=== PATIENT | female | born 1950 | race Caucasian/White ===

== ENCOUNTER 2018-05-21 05:37 | Day surgery (SDC) | payer OTHER ==
[2018-05-21 06:48] LABS: ADD MAN DIFF? NO
[2018-05-21 06:55] LABS: BASOPHILS % 0.6 % (0.0-2.0); EOSINOPHILS # 0.2 10^3/ul (0.0-0.5); EOSINOPHILS % 2.2 % (0.0-7.0); HEMATOCRIT 42.8 % (37.0-47.0); HEMOGLOBIN 13.4 g/dl (12.0-16.0); LYMPHOCYTES # 2.8 10^3/ul (0.8-2.9); LYMPHOCYTES % 40.7 % (15.0-51.0); MEAN CORPUSCULAR HGB CONC 31.3 g/dl (32.0-37.0); MEAN CORPUSCULAR VOLUME 89.5 fl (82.0-101.0); MEAN PLATELET VOLUME 11.5 fl (7.4-10.4); MONOCYTE # 0.5 10^3/ul (0.3-0.9); NEUTROPHIL # 3.3 10^3/ul (1.6-7.5); NEUTROPHILS % 48.1 % (39.0-77.0); PLATELET COUNT 185 10^3/UL (140-415); RED BLOOD COUNT 4.78 10^6/ul (4.20-5.40); RED CELL DISTRIBUTION WIDTH 14.8 % (11.5-14.5)
[2018-05-21 06:55] LABS: WHITE BLOOD COUNT 6.8 10^3/ul (4.8-10.8)
[2018-05-21 07:11] LABS: ALANINE AMINOTRANSFERASE 16 IU/L (13-69); ALBUMIN 3.7 g/dl (3.3-4.9); ALBUMIN/GLOBULIN RATIO 1.08; ALKALINE PHOSPHATASE 104 IU/L (42-121); ANION GAP 4 (5-13); ASPARTATE AMINO TRANSFERASE 26 IU/L (15-46); BLOOD UREA NITROGEN 22 mg/dl (7-20); CALCIUM 9.6 mg/dl (8.4-10.2); CARBON DIOXIDE 32 mmol/L (21-31); CHLORIDE 105 mmol/L (97-110); CREATININE 0.92 mg/dl (0.44-1.00); Estimated GFR > 60 mL/min (>60); GLUCOSE 95 mg/dl (70-220); POTASSIUM 4.6 mmol/L (3.5-5.1); SODIUM 141 mmol/L (135-144); TOTAL PROTEIN 7.1 g/dl (6.1-8.1)
[2018-05-21 07:12] LABS: INR 1.49; PROTIME 18.1 Sec (11.9-14.9); PT RATIO 1.4
[2018-05-21] MEDS ORDERED: FENTAnyl 50 MCG/ML VIAL IV (07:30)
[2018-05-21] MEDS ORDERED: LABETALOL HCL 20MG INJ IV (07:30)
[2018-05-21] MEDS ORDERED: ONDANSETRON 4 MG INJ IV (07:30)
[2018-05-21] MEDS ORDERED: morphine (1 MG/ML) 10ML SYRINGE IV (07:30)
[2018-05-21] MEDS ORDERED: hydrALAzine 20 MG INJ IV (07:30)
[2018-05-21] MEDS ORDERED: METOCLOPRAMIDE 10 MG INJ IV (07:30)
[2018-05-21] MEDS ORDERED: HYDROmorphONE 1 MG/5 ML IV SYRINGE IV (07:30)
[2018-05-21 07:42] LABS: PARTIAL THROMBOPLASTIN TIME 42.3 Sec (23.0-35.0)
[2018-05-21] MEDS ORDERED: PROPOFOL 40 ML (08:03)
== END 2018-05-21 08:50 | disposition home or self-care (01) ==
LOC: SDS 05:37
DX: I45.2 Bifascicular block (principal); I48.91 Unspecified atrial fibrillation; I10 Essential (primary) hypertension; E66.9 Obesity, unspecified
CPT/HCPCS: 80053; 85025; 85610; 85730; 92960; 93005; 93312; 93320; 93325

== ENCOUNTER 2018-05-28 16:29 | Observation (INO) | payer OTHER ==
[2018-05-28 19:10] LABS: ADD MAN DIFF? NO
[2018-05-28] MEDS: NITROGLYCERIN 2% 1 GM OINT PKT TD (19:10)
[2018-05-28] MEDS: LORAZEPAM 2 MG INJ IV (19:10)
[2018-05-28] MEDS: ASPIRIN 325 MG TAB PO (19:10)
[2018-05-28 19:11] LABS: WHITE BLOOD COUNT 7.7 10^3/ul (4.8-10.8)
[2018-05-28 19:11] LABS: BASOPHILS % 0.4 % (0.0-2.0); EOSINOPHILS # 0.1 10^3/ul (0.0-0.5); EOSINOPHILS % 1.3 % (0.0-7.0); HEMATOCRIT 41.4 % (37.0-47.0); HEMOGLOBIN 12.9 g/dl (12.0-16.0); LYMPHOCYTES # 2.7 10^3/ul (0.8-2.9); LYMPHOCYTES % 35.4 % (15.0-51.0); MEAN CORPUSCULAR HEMOGLOBIN 27.7 pg (29.0-33.0); MEAN CORPUSCULAR HGB CONC 31.2 g/dl (32.0-37.0); MEAN CORPUSCULAR VOLUME 88.8 fl (82.0-101.0); MEAN PLATELET VOLUME 10.3 fl (7.4-10.4); MONOCYTE # 0.7 10^3/ul (0.3-0.9); MONOCYTES % 8.4 % (0.0-11.0); NEUTROPHIL # 4.2 10^3/ul (1.6-7.5); NEUTROPHILS % 54.2 % (39.0-77.0); PLATELET COUNT 167 10^3/UL (140-415); RED BLOOD COUNT 4.66 10^6/ul (4.20-5.40); RED CELL DISTRIBUTION WIDTH 14.1 % (11.5-14.5)
[2018-05-28 19:28] LABS: ALANINE AMINOTRANSFERASE 18 IU/L (13-69); ALBUMIN 3.8 g/dl (3.3-4.9); ALBUMIN/GLOBULIN RATIO 1.05; ALKALINE PHOSPHATASE 127 IU/L (42-121); ANION GAP 7 (5-13); ASPARTATE AMINO TRANSFERASE 20 IU/L (15-46); BLOOD UREA NITROGEN 21 mg/dl (7-20); CALCIUM 9.4 mg/dl (8.4-10.2); CARBON DIOXIDE 32 mmol/L (21-31); CHLORIDE 102 mmol/L (97-110); CREATININE 0.82 mg/dl (0.44-1.00); Estimated GFR > 60 mL/min (>60); GLUCOSE 90 mg/dl (70-220); POTASSIUM 4.3 mmol/L (3.5-5.1); SODIUM 141 mmol/L (135-144); TOTAL PROTEIN 7.4 g/dl (6.1-8.1)
[2018-05-28 19:30] LABS: INR 1.09; PROTIME 14.2 Sec (11.9-14.9); PT RATIO 1.1
[2018-05-28 19:31] LABS: PARTIAL THROMBOPLASTIN TIME 37.5 Sec (23.0-35.0)
[2018-05-28 19:39] LABS: TROPONIN-I < 0.012 ng/ml (0.000-0.120)
[2018-05-28] MEDS: HYDROmorphONE 1 MG/ML SYG IV (22:32)
[2018-05-28] MEDS: ONDANSETRON 4 MG INJ IV (22:32)
[2018-05-28] MEDS ORDERED: ONDANSETRON 4 MG INJ IV (23:30)
[2018-05-28] MEDS ORDERED: ACETAMINOPHEN 325 MG TAB PO (23:30)
[2018-05-29] MEDS ORDERED: morphine 2 MG INJ IV
[2018-05-29] MEDS ORDERED: DOCUSATE SODIUM 100 MG CAP PO
[2018-05-29] MEDS ORDERED: NACL 0.9% 3 ML SYG IV
[2018-05-29] MEDS ORDERED: ONDANSETRON 4 MG INJ IV
[2018-05-29] MEDS ORDERED: BISACODYL (EC) 5 MG TAB PO
[2018-05-29] MEDS: NITROGLYCERIN (SL) 0.4 MG TAB SL ×2 (00:51→01:31)
[2018-05-29 01:00] LABS: CREATINE KINASE 38 IU/L (23-200)
[2018-05-29] MEDS: traZODone 50 MG TAB PO (01:01)
[2018-05-29] MEDS: SOD CHLORIDE 0.9% 1,000 ML IV (01:01)
[2018-05-29 01:13] LABS: CK-MB 0.76 ng/ml (0.0-2.4); TROPONIN-I < 0.012 ng/ml (0.000-0.120)
[2018-05-29 05:35] LABS: ADD MAN DIFF? NO
[2018-05-29 05:45] LABS: BASOPHILS % 0.1 % (0.0-2.0); EOSINOPHILS # 0.1 10^3/ul (0.0-0.5); EOSINOPHILS % 1.7 % (0.0-7.0); HEMATOCRIT 37.3 % (37.0-47.0); HEMOGLOBIN 11.6 g/dl (12.0-16.0); LYMPHOCYTES # 2.4 10^3/ul (0.8-2.9); LYMPHOCYTES % 35.2 % (15.0-51.0); MEAN CORPUSCULAR HEMOGLOBIN 27.8 pg (29.0-33.0); MEAN CORPUSCULAR HGB CONC 31.1 g/dl (32.0-37.0); MEAN CORPUSCULAR VOLUME 89.2 fl (82.0-101.0); MEAN PLATELET VOLUME 10.8 fl (7.4-10.4); MONOCYTE # 0.6 10^3/ul (0.3-0.9); MONOCYTES % 8.7 % (0.0-11.0); NEUTROPHIL # 3.7 10^3/ul (1.6-7.5); PLATELET COUNT 145 10^3/UL (140-415); RED BLOOD COUNT 4.18 10^6/ul (4.20-5.40); RED CELL DISTRIBUTION WIDTH 14.1 % (11.5-14.5)
[2018-05-29 05:45] LABS: WHITE BLOOD COUNT 6.9 10^3/ul (4.8-10.8)
[2018-05-29] MEDS ORDERED: PENDING SANTYL ORDER FOR WOUND CARE XX (06:00)
[2018-05-29 06:07] LABS: CREATINE KINASE 32 IU/L (23-200)
[2018-05-29] MEDS: PANTOPRAZOLE (EC) 40 MG TAB PO (06:12)
[2018-05-29 06:18] LABS: CK INDEX 2.3; CK-MB 0.72 ng/ml (0.0-2.4); TROPONIN-I 0.018 ng/ml (0.000-0.120)
[2018-05-29 06:46] LABS: ALANINE AMINOTRANSFERASE 21 IU/L (13-69); ALBUMIN 3.2 g/dl (3.3-4.9); ALKALINE PHOSPHATASE 96 IU/L (42-121); ANION GAP 7 (5-13); ASPARTATE AMINO TRANSFERASE 23 IU/L (15-46); BLOOD UREA NITROGEN 19 mg/dl (7-20); CARBON DIOXIDE 33 mmol/L (21-31); CHLORIDE 104 mmol/L (97-110); CHOL/HDL RATIO 3.4 RATIO; CHOLESTEROL 130 mg/dl (100-200); CREATININE 0.75 mg/dl (0.44-1.00); Estimated GFR > 60 mL/min (>60); GLUCOSE 89 mg/dl (70-220); HDL CHOLESTEROL 38 mg/dl (35-98); LDL CHOLESTEROL,CALCULATED 79 mg/dl; MAGNESIUM 1.8 mg/dl (1.7-2.5); POTASSIUM 4.3 mmol/L (3.5-5.1); SODIUM 144 mmol/L (135-144); TOTAL PROTEIN 6.4 g/dl (6.1-8.1); TRIGLYCERIDES 66 mg/dl (0-149)
[2018-05-29] MEDS: FUROSEMIDE 20 MG INJ IV ×2 (08:00→09:52)
[2018-05-29 08:15] LABS: HEMOGLOBIN A1C 5.5 % (0-5.9)
[2018-05-29] MEDS: SOTALOL 80 MG TAB PO (09:00)
[2018-05-29] MEDS: REGADENOSON 0.4 MG/5 ML SYG (09:21)
[2018-05-29] MEDS: ACETAMINOPHEN 325 MG TAB PO (09:50)
[2018-05-29] MEDS: morphine 4 MG/ML VIAL IV (10:10)
[2018-05-29] MEDS ORDERED: RIVAROXABAN 20 MG TABLET PO (17:55)
[2018-05-29] MEDS ORDERED: ATORVASTATIN 10 MG TAB PO (21:00)
[2018-05-29] MEDS ORDERED: NON-FORMULARY/PATIENT OWN MED (Simvastatin* (Zocor*) 20 MG) PO (21:00)
[2018-05-29] MEDS ORDERED: GABAPENTIN 100 MG CAP PO (21:00)
[2018-05-29] MEDS ORDERED: DULOXETINE 30 MG CAP DR PO (21:00)
== END 2018-05-29 14:20 | disposition home or self-care (01) ==
LOC: TEL 23:10 → E/R 16:29
DX: R07.9 Chest pain, unspecified (principal); I48.0 Paroxysmal atrial fibrillation; E78.5 Hyperlipidemia, unspecified; E66.9 Obesity, unspecified; Z68.41 Body mass index [BMI] 40.0-44.9, adult; I51.7 Cardiomegaly; I82.409 Acute embolism and thrombosis of unspecified deep veins of unspecified lower extremity; R94.31 Abnormal electrocardiogram [ECG] [EKG]; F41.9 Anxiety disorder, unspecified; R00.1 Bradycardia, unspecified; Z79.01 Long term (current) use of anticoagulants
CPT/HCPCS: 36415; 71045; 78452; 80053; 80061; 82550; 82553; 83036; 83735; 84443; 84484; 85025; 85610; 85730; 93005; 93017; 96374; 96375; 99217; 99285-25